=== PATIENT | male | born 1985 | race Caucasian/White ===

== ENCOUNTER 2016-08-23 20:35 | Emergency (ER) | payer OTHER ==
[~2016-08-23] VITALS: Ht 170.2 cm; Wt 68.0 kg
[~2016-08-23 20:35] MED LIST: Z.0.NO CURRENT MEDS
[2016-08-23 20:42] VITALS: BP 130/76; PULSE 80; RESP 16; TEMP 98.4; O2SAT 100
[2016-08-23] MEDS ORDERED: LIDOCAINE HCL 1% 30 ML VIAL INFIL ONE (21:00)
--- NOTE | 2016-08-23 21:19 | RADRPT ---
EXAM DATE/TIME: 08/23/2016 21:15 [place] COMPARISON: No previous studies available for comparison. INDICATIONS : Right anterior proximal laceration from glass. MEDICAL HISTORY : None. SURGICAL HISTORY : ORIF right wrist. ENCOUNTER: Initial ACUITY: 1 day PAIN SCORE: 2/10 LOCATION: Right anterior hand. FINDINGS: Several small radiopaque structures are seen in the volar thenar soft tissues. The largest is about 1 x 3 mm in size. No fracture of the right hand. No subluxation. CONCLUSION: Thenar laceration and focal radiopaque debris as above. No fracture. Payam Brown MD on August 23, 2016 at 21:17 Board Certified Radiologist. This report was verified electronically.
--- NOTE | 2016-08-23 21:43 | PD ---
HPI Chief Complaint: Laceration/Skin Injury Time Seen by Provider: 21:38 Travel History International Travel<30 days: No Contact w/Intl Traveler<30days: No Traveled to known affect area: No History of Present Illness HPI 31-year-old [id number] white male presents to emergency department with complains of lacerations to his hand and forearm while being involved in a police matter. The patient accidentally put his right hand through a window of the door as the individual closed. He denies any numbness or tingling. He is up-to-date with immunizations. Pain is minimal. PFSH Past Medical History Narrative Medical Right forearm fracture Diminished Hearing: No Tetanus Vaccination: < 5 Years Past Surgical History Narrative Surgical Right forearm fracture with ORIF Social History Alcohol Use: No Tobacco Use: No Substance Use: No Allergies-Medications (Allergen,Severity, Reaction): Coded Allergies: No Known Allergies (Verified , 10/02/09) Reported Meds & Prescriptions Reported Meds & Active Scripts Active Review of Systems Except as stated in HPI: all other systems reviewed are Neg Physical Exam Narrative GENERAL: This is a well-nourished, well-developed patient, in no apparent distress. SKIN: No rashes, ecchymoses or lesions. Warm and dry. Patient has superficial abrasions to the upper arm and forearm. There are no suturable lacerations. There are 2 suturable lacerations involving the right hand. First one measures 1.5 cm is on the thenar eminence. There is a piece of glass noted in the wound. There is also a laceration over the proximal mid palm measuring 1 cm. There are no deep injuries. HEAD: Atraumatic. Normocephalic. EYES: PERRL, EOMI, no discharge or injection. No scleral icterus. EARS: Clear NOSE: Nasal turbinates appear normal. THROAT: Mucosa pink and moist. Airway patent. NECK: Trachea midline. supple, moves head freely. LUNGS: Clear to auscultation. CV: Regular in rhythm. ABDOMEN: Soft nontender. EXT: No clubbing cyanosis or edema. Data Data Last Documented VS Vital Signs Date Time Temp Pulse Resp B/P Pulse Ox O2 Delivery O2 Flow Rate FiO2 08/23/16 20:42 98.4 80 16 130/76 100 Orders Lidocaine 1% Inj (Xylocaine 1% Inj) (08/23/16 21:00) Hand, Limited (2vws) (08/23/16 20:57) Ice/Cold Pack (08/23/16 20:57) MDM Medical Decision Making Medical Screen Exam Complete: Yes Emergency Medical Condition: Yes Medical Record Reviewed: Yes Interpretation(s) Last 24 hours Impressions Hand X-Ray 08/23/162056 Signed Impressions: Service Date/Time: Tuesday, August 23, 2016 21:15 - CONCLUSION: Thenar laceration and focal radiopaque debris as above. No fracture. Payam Brown MD Differential Diagnosis MDM: High Differential diagnoses: Fracture, sprain, strain, dislocation, contusion, neurovascular injury Narrative Course Patient's lacerations are closed with sutures. A small prachi of glass was removed from the right hand. Procedures Procedure Narrative LACERATION LOCATION: Right thenar eminence LENGTH: 1.5 cm NUMBER OF STITCHES/BRIA: 2 REPAIR: The area of the laceration was prepped with Betadine and sterilely draped. The laceration was infiltrated with 1% lidocaine. A superficial glass foreign bodies identified and removed without incidence. The wound was copiously irrigated and explored without evidence of tendon injury or neurovascular injury. The wound was closed using 5-0 proline. This was a simple single layer repair. A sterile dressing was applied. The patient was advised to keep the dressing clean and dry. Patient tolerated the procedure well. LACERATION LOCATION: Right hand proximal palm LENGTH: 1 cm NUMBER OF STITCHES/BRIA: 2 REPAIR: The area of the laceration was prepped with Betadine and sterilely draped. The laceration was infiltrated with 1% lidocaine. The wound was copiously irrigated and explored without evidence of foreign body, tendon injury or neurovascular injury. The wound was closed using 5-0 proline. This was a simple single layer repair. A sterile dressing was applied. The patient was advised to keep the dressing clean and dry. Patient tolerated the procedure well. Diagnosis Primary Impression: Laceration of right hand Qualified Code: S61.421A - Laceration of right hand with foreign body, initial encounter Patient Instructions: General Instructions Additional Instructions: Rest. Elevation. Daily wound care with soap, water, Neosporin. Tylenol or Advil for pain. Sutures out in 14 days. Return to the ER if any problems. Med/Other Pt SpecificInfo: No Meds Exist/No RX given, Wound Care Disposition: 01 DISCHARGE HOME Condition: Stable Kilo [place] Aug 23, 2016 21:43
[2016-08-23 21:54] VITALS: BP 125/77
== END 2016-08-23 21:50 | disposition home or self-care (01) ==
LOC: NEPK 20:35
DX: S61.411A Laceration without foreign body of right hand, initial encounter (principal)
CPT/HCPCS: 12002; 73120